=== PATIENT | female | born 1975 | race Caucasian/White ===

== ENCOUNTER 2017-04-06 10:47 | Emergency (ER) | payer MEDICAID, OTHER ==
[~2017-04-06] VITALS: Wt 71.0 kg
[~2017-04-06 10:47] MED LIST: ACET500C5 PO; AMO500 PO; AZIT250T94 PO; IBUP-1542 PO; OMEP20CA16 PO
--- NOTE | 2017-04-06 12:26 | ERD ---
ER Documentation Chief Complaint Date/Time DATE: 04/06/17 TIME: 12:24 Chief Complaint LEFT CALF PAIN X 1 DAY HPI 38-year-old female states that she tripped and fell yesterday onto the back of her left lower leg and is complaining of pain. She has localized pain at the calf region, worse with any walking and better at rest. It is nonradiating described as achy and moderate. She has not tried anything for this pain. She has no difficulty with ambulation or weakness. ROS All systems reviewed and are negative except as per history of present illness. Medications Home Meds Active Scripts Ibuprofen* (Motrin*) 600 Mg Tab, 600 MG PO Q6, #30 TAB Prov:ANDRE MELCHOR PA-C 04/06/17 Omeprazole* (Omeprazole*) 20 Mg Capsule.dr, 20 MG PO DAILY, #10 Prov:ETIENNE KU MD 08/06/16 Ibuprofen* (Motrin*) 600 Mg Tab, 600 MG PO Q6, #30 TAB Prov:ANDRE MELCHOR PA-C 11/13/15 Azithromycin* (Zithromax*) 250 Mg Tablet, 250 MG PO .ZPACK DIRECTED, #6 TAB TAKE 500 MG (2 TABS) THE FIRST DAY THEN 250 MG (1 TAB) DAYS 2-5 Prov:ANDRE MELCHOR PA-C 11/13/15 Acetaminophen* (Tylophen*) 500 Mg Capsule, 1 CAP PO Q6H Y for PAIN AND OR ELEVATED TEMP, #20 CAP Prov:ILANA ROSE PA-C 10/07/15 Ibuprofen* (Motrin*) 600 Mg Tab, 600 MG PO Q6H Y for PAIN AND OR ELEVATED TEMP, #30 Prov:ILANA ROSE PA-C 10/07/15 Amoxicillin* (Amoxicillin*) 500 Mg Cap, 500 MG PO BID for 10 Days, CAP Prov:ILANA ROSE PA-C 10/07/15 Allergies Allergies: Coded Allergies: No Known Drug Allergies (Verified Allergy, Unknown, 11/13/15) PMhx/Soc History of Surgery: Yes (3 C SECTION) Anesthesia Reaction: No Hx Neurological Disorder: No Hx Respiratory Disorders: No Hx Cardiac Disorders: No Hx Psychiatric Problems: No Hx Miscellaneous Medical Probl: No Hx Alcohol Use: No Hx Substance Use: No Hx Tobacco Use: No Physical Exam Vitals Vital Signs Date Time Temp Pulse Resp B/P Pulse Ox O2 Delivery O2 Flow Rate FiO2 04/06/17 10:55 98.0 80 18 107/59 99 Physical Exam General: Well-developed, well-nourished. The patient appears in no acute distress. HEENT: Head is normocephalic, atraumatic. No scleral icterus. Neck: Supple. Nontender. Lungs: Clear to auscultation. Normal air movement. Heart: Regular rate and rhythm. S1 and S2 are normal. No murmurs, gallops, or rubs. Abdomen: Nondistended. Extremities: Contusion noted at the left calf, there are no bony deformities, and she is able to straight leg raise. There is no footdrop. Achilles is intact. Negative Homans sign. Neurologic: Alert and oriented 3. No focal deficits. Normal speech and gait. Skin: Normal turgor. No rash or lesions. Results 24 hrs Current Medications Medications (Trade) Dose Ordered Sig/Jennie Route PRN Reason Start Time Stop Time Status Last Admin Dose Admin Ibuprofen (Motrin) 600 mg ONCE ONCE PO 04/06/17 12:30 04/06/17 12:31 DC 04/06/17 12:20 PROCEDURE: XR Left Tibia-Fibula CLINICAL INDICATION: Fell yesterday TECHNIQUE: AP and lateral radiographs were submitted COMPARISON: None FINDINGS: Osseous structures: appear well mineralized and intact with no fracture or destructive process identified. Joint spaces: are well maintained, with no significant spurring, erosion or joint effusion evident. Soft tissues: appear unremarkable. IMPRESSION: Unremarkable left tibia-fibula study. Physician Alma Date Time Electronically viewed and signed by Physician Alma on 04/06/2017 12:50 RH/ Procedures/MDM ED course: She was given ibuprofen for pain. MDM: 38-year-old female comes in with a contusion to left lower extremity. X- rays are normal the left lower extremity. Her pain is in the Liver there is distinct tenderness on palpation over the calf with a contusion, given her recent injury I doubt there is any correlation with a venous thrombosis. There is no evidence of a limb threatening process, cellulitis, Achilles tendon rupture, knee injury, tendon rupture. Departure Diagnosis: Primary Impression: Injury of left leg Condition: ANDRE Coronel PA-C April 06, 2017 12:26
[2017-04-06] MEDS ORDERED: IBUP-1542 PO (12:27)
[2017-04-06] MEDS ORDERED: IBUPROFEN 600 MG TAB PO ONE (12:30)
--- NOTE | 2017-04-06 12:51 | RADRPT ---
PROCEDURE: XR Left Tibia-Fibula CLINICAL INDICATION: Fell yesterday TECHNIQUE: AP and lateral radiographs were submitted COMPARISON: None FINDINGS: Osseous structures: appear well mineralized and intact with no fracture or destructive process iden tified. Joint spaces: are well maintained, with no significant spurring, erosion or joint effusion evident. Soft tissues: appear unremarkable. IMPRESSION: Unremarkable left tibia-fibula study. Physician Alma Date Time Electronically viewed and signed by Tyron Bro Physician on 04/06/2017 12:50 RH/
== END 2017-04-06 13:12 | disposition home or self-care (01) ==
LOC: FTE 10:47
DX: S89.92XA Unspecified injury of left lower leg, initial encounter (principal); W01.0XXA Fall on same level from slipping, tripping and stumbling without subsequent striking against object, initial encounter; Y92.9 Unspecified place or not applicable
CPT/HCPCS: 73590; Z7502; Z7610